=== PATIENT | female | born 2000 | race Hispanic/Latino ===

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

== ENCOUNTER → 2025-07-14 | Outpatient (REF) | payer BC, OTHER ==
[~2025-07-14] MED LIST: IOPAMIDOL 370 MG/ML 100 ML INFUS..BTL INJ ONE
== END ==
LOC: CT 13:18
PROVIDERS: ATTEND Urology
DX: R10.32 Left lower quadrant pain (principal)
CPT/HCPCS: 74178; Q9967